=== PATIENT | male | born 1955 | race Caucasian/White ===

== ENCOUNTER 2020-05-17 15:08 | Inpatient (IN) | payer BC, OTHER ==
[2020-05-17 16:24] LABS: Protime INR 1.03
--- NOTE | 2020-05-17 16:24 | RAD REPORT ---
EXAM DESCRIPTION: CT - Angio Aorta For Dissection - 05/17/2020 4:13 pm CLINICAL HISTORY: Chest pain radiating to the back. HTN, BACK PAIN COMPARISON: No comparisons TECHNIQUE: CT angiography of the aorta was performed with MIPs. All CT scans are performed using dose optimization technique as appropriate and may include automated exposure control or mA/KV adjustment according to patient size. FINDINGS: A left aortic arch is present with normal branching pattern of the great vessels.No acute aortic finding is seen such as aneurysm, penetrating ulcer or dissection. The celiac axis, SMA, MARY and renal arteries are patent. No evidence of pulmonary embolism. The lungs are mildly emphysematous but clear. The liver demonstrates no focal mass or biliary dilatation.Multiple benign liver cysts.The spleen, pa ncreas, adrenal glands and kidneys are within normal limits for arterial phase imaging.15 mm left mai al cyst. No bowel obstruction, free fluid or abscess.Small fat containing umbilical hernia.No pathologic enlar ged lymphadenopathy identified.Normal appendix. Prominent lumbar degenerative changes at L3-4. IMPRESSION: No acute aortic finding is demonstrated.
--- NOTE | 2020-05-17 16:39 | RAD REPORT ---
EXAM DESCRIPTION: RAD - Chest Single View - 05/17/2020 4:31 pm CLINICAL HISTORY: HTN, LEXIE PAIN Chest pain. COMPARISON: Angio Aorta For Dissection dated 05/17/2020 FINDINGS: Portable technique limits examination quality. Mild subsegmental atelectasis in both lung bases. The lungs are otherwise clear. The heart is normal in size. No displaced fractures.
[2020-05-17 16:46] LABS: ALT/SGPT 35 U/L (12-78); AST/SGOT 32 U/L (15-37); Absolute Lymphocytes (CBC) 1.6 K/uL (0.7-4.9); Albumin 3.6 g/dL (3.4-5.0); Alkaline Phosphatase 65 U/L (45-117); BUN Blood Urea Nitrogen 16 mg/dL (7-18); Bicarbonate 27 mmol/L (21-32); Bilirubin Direct < 0.1 mg/dL (0-0.2); Bilirubin Total 0.3 mg/dL (0.2-1.0); Glucose Level 88 mg/dL (74-106); Lymphocytes % 22.5 % (15.3-44.8); MPV 9.2 fL (7.6-11.3); Magnesium 2.4 mg/dL (1.8-2.4); NT PRO-BNP 636 pg/mL (<125); Potassium 3.9 mmol/L (3.5-5.1); Protein, Total 7.3 g/dL (6.4-8.2); RBC Red Blood Cell Count 4.79 M/uL (4.33-5.43); Sodium Level 140 mmol/L (136-145)
[2020-05-17 16:48] LABS: Troponin (Emerg Dept Use Only) 4.56 ng/mL (0.0-0.045)
--- NOTE | 2020-05-17 17:04 | EDPHYS ---
Physician Documentation [facility] Name: Bob Early Age: 64 yrs Sex: Male : 1955 Arrival Date: 05/17/2020 Time: 15:16 Bed 6 Private MD: ED Physician Silviano Green HPI: 05/17 15:30 This 64 yrs old Male presents to ER via Ambulatory with complaints of Chest cp Pain, High Blood Pressure. 15:30 The patient presents with pain that is acute, with no known mechanism of injury. The cp symptoms are located in the left scapular area and right scapular area and mid scapular area. Onset: The symptoms/episode began/occurred last Thursday. Pain occurred suddenly that awoke patient from sleep. Pain resolved after 2-3 hours and has been intermittent since. Patient denies any pain today. The pain radiates to the lateral side of chest and left arm and right arm. Associated signs and symptoms: Pertinent negatives: abdominal pain, constipation, fever, headache, incontinence, numbness, tingling, weakness. Modifying factors: the patient symptoms are aggravated by nothing. Severity of symptoms: in the emergency department the symptoms have resolved, yesterday. 15:30 The patient has not experienced similar symptoms in the past. cp Historical: - Allergies: 15:34 No Known Allergies; ca1 - PMHx: 15:34 Hypertension; ca1 - Immunization history:: Adult Immunizations up to date. - Social history:: Smoking status: Patient denies any tobacco usage or history of. ROS: 15:33 Cardiovascular: Positive for radiating pain from mid back to lateral chest bilaterally. cp 15:33 Back: Positive for pain at rest, pain with movement, of the thoracic area. 15:33 Eyes: Negative for injury, pain, redness, and discharge. cp 15:33 Constitutional: Negative for body aches, chills, fever, poor PO intake. 15:33 ENT: Negative for ear pain, sore throat, difficulty swallowing, difficulty handling secretions. 15:33 Respiratory: Negative for cough, shortness of breath, wheezing. 15:33 Abdomen/GI: Negative for abdominal pain, nausea, vomiting, and diarrhea. 15:35 Skin: Negative for rash. cp 15:35 Neuro: Negative for altered mental status, dizziness, headache, numbness, syncope, weakness. 15:35 All other systems are negative. Exam: 15:33 ECG was reviewed by the Attending Physician. cp 15:35 Constitutional: The patient appears in no acute distress, alert, awake, comfortable, cp non-diaphoretic, non-toxic, well developed, well nourished. 15:35 Head/Face: Normocephalic, atraumatic. cp 15:35 Eyes: Periorbital structures: appear normal, Conjunctiva: normal, no exudate, no cp injection, Sclera: no appreciated abnormality, Lids and lashes: appear normal, bilaterally. 15:35 ENT: External ear(s): are unremarkable, Nose: is normal, Mouth: Lips: moist, Oral cp mucosa: pink and intact, moist, Posterior pharynx: is normal, airway is patent, no erythema, no exudate. 15:35 Neck: ROM/movement: is normal, is supple, without pain, no range of motions limitations, no nuchal rigidity. 15:35 Chest/axilla: Inspection: normal, Palpation: is normal, no crepitus, no tenderness. 15:35 Cardiovascular: Rate: normal, Rhythm: regular, Heart sounds: murmur, not appreciated, Edema: is not appreciated, JVD: is not appreciated. 15:35 Respiratory: the patient does not display signs of respiratory distress, Respirations: normal, no use of accessory muscles, no retractions, labored breathing, is not present, Breath sounds: are clear throughout, no decreased breath sounds. 15:35 Abdomen/GI: Inspection: abdomen appears normal, Palpation: abdomen is soft and non-tender, in all quadrants. 15:35 Back: pain, that is very mild, of the left scapular area and right scapular area and mid scapular area, ROM is normal. 15:35 Musculoskeletal/extremity: Exam is negative for bony tenderness, calf tenderness, decreased range of motion, injury. 15:35 Skin: no rash present. 15:35 Neuro: Orientation: to person, place \T\ time. Mentation: is normal, Cerebellar function: is grossly normal, Motor: moves all fours, strength is normal, Sensation: is normal. Vital Signs: 15:30 BP 144 / 82; Pulse 69; Resp 12 S; Temp 97.2(TE); Pulse Ox 98% on R/A; Weight 81.65 kg ca1 (R); Height 5 ft. 7 in. (170.18 cm) (R); Pain 0/10; 16:30 BP 126 / 82; Pulse 77; Resp 18; Pulse Ox 99% on R/A; ph 17:30 BP 156 / 94; Pulse 74; Resp 16; Pulse Ox 99% on R/A; ph 18:27 BP 162 / 96; Pulse 70; Resp 16; Pulse Ox 99% on R/A; ph 20:30 BP 161 / 100; Pulse 66; Resp 18; Pulse Ox 99% on R/A; wh 22:00 BP 158 / 97; Pulse 66; Resp 18; Pulse Ox 98% on R/A; wh 15:30 Body Mass Index 28.19 (81.65 kg, 170.18 cm) ca1 MDM: 15:27 Patient medically screened. cp 16:00 Differential diagnosis: Cholelithiasis chronic back pain, ruptured disc, vertebral cp fracture, acute MD, aortic aneurysm, aortic rupture. 17:00 Data reviewed: vital signs, nurses notes, lab test result(s), EKG, radiologic studies, cp CT scan, plain films. 17:00 Test interpretation: by ED physician or midlevel provider: ECG. Counseling: I had a cp detailed discussion with the patient and/or guardian regarding: the historical points, exam findings, and any diagnostic results supporting the discharge/admit diagnosis, lab results, radiology results, the need for further work-up and treatment in the hospital. 17:05 Physician consultation: Hilario Knight MD was contacted at 16:55, regarding admission, cp to the telemetry unit. consult, would like admission per Dr. Gualberto Brown DO requests patient to be given heparin bolus and placed on heparin drip, wants patient scheduled for cardiac cath in morning. 05/17 15:30 Order name: Basic Metabolic Panel cp 05/17 15:30 Order name: CBC with Diff cp 05/17 15:30 Order name: LFT's cp 05/17 15:30 Order name: Magnesium cp 05/17 15:30 Order name: NT PRO-BNP cp 05/17 15:30 Order name: PT-INR cp 05/17 15:30 Order name: Troponin (emerg Dept Use Only) cp 05/17 16:30 Order name: Protime (+INR); Complete Time: 16:45 EDMS 05/17 16:47 Order name: CBC with Automated Diff; Complete Time: 16:48 EDMS 05/17 16:48 Order name: Basic Metabolic Panel; Complete Time: 16:49 EDMS 05/17 16:48 Order name: Liver (Hepatic) Function; Complete Time: 16:49 EDMS 05/17 16:48 Order name: Troponin (Emerg Dept Use Only); Complete Time: 16:49 EDMS 05/17 16:49 Interpretation: Abnormal: TROPED 4.56. cp 05/17 16:48 Order name: NT PRO-BNP; Complete Time: 16:49 EDMS 05/17 16:48 Order name: Magnesium; Complete Time: 16:49 EDMS 05/17 15:30 Order name: XRAY Chest (1 view) 05/17 15:30 Order name: EKG; Complete Time: 21:19 cp 05/17 15:30 Order name: Cardiac monitoring; Complete Time: 17:07 05/17 15:30 Order name: EKG - Nurse/Tech; Complete Time: 17:07 05/17 15:30 Order name: IV Saline Lock; Complete Time: 17:07 cp 05/17 15:30 Order name: Labs collected and sent; Complete Time: 17:07 cp 05/17 15:30 Order name: O2 Per Protocol; Complete Time: 17:07 05/17 15:30 Order name: O2 Sat Monitoring; Complete Time: 18:04 cp 05/17 15:30 Order name: CT Aorta for Dissection 05/17 16:26 Order name: CT; Complete Time: 16:45 EDMS 05/17 16:46 Interpretation: Report reviewed. 05/17 16:42 Order name: RAD; Complete Time: 16:45 EDMS 05/17 22:05 Order name: CREATININE WHOLE BLOOD EDNE 05/17 15:59 Order name: Blood Pressure Recheck: bilateral upper extremity; Complete Time: 18:29 cp EC:33 Rate is 73 beats/min. Rhythm is regular. VA interval is normal. QRS interval is normal. cp QT interval is normal. Interpreted by me. Reviewed by me. Administered Medications: 16:00 Drug: NS 0.9% 1000 ml Route: IV; Rate: 1000 ml/hr; Site: right antecubital; ph 18:29 Follow up: Response: No adverse reaction; IV Status: Completed infusion ph 22:11 Follow up: Response: No adverse reaction; IV Status: Completed infusion wh 17:45 Drug: Heparin (MD-Bolus No thrombolytic) - HEParin 60 units/kg {Co-Signature: sv ph (Ivett Rodriguez RN).} {Note: 4900 units given.} Route: IVP; Site: right antecubital; 18:58 Follow up: Response: No adverse reaction ph 22:11 Follow up: Response: No adverse reaction wh 17:45 Drug: Heparin (MD Drip) 12 units/kg/hr - (HEParin 12042 units, D5W 500 ml) ph {Co-Signature: sv (Ivett Rodriguez RN).} {Note: administered at 1000 units per hour.} Route: IV; Rate: calculated rate; Site: right antecubital; 18:58 Follow up: Response: No adverse reaction; IV Status: Infusion continued upon admission ph 22:11 Follow up: Response: No adverse reaction; IV Status: Infusion continued upon admission wh 17:56 Drug: Aspirin Chewable Tablet 324 mg Route: PO; ph 18:55 Follow up: Response: No adverse reaction ph 22:11 Follow up: Response: No adverse reaction Disposition: 05/18 15:56 Co-signature as Attending Physician, Silviano Green MD I agree with the assessment and kdr plan of care. Disposition: 05/17/20 17:03 Hospitalization ordered by Gualberto Brown for Inpatient Admission. Preliminary diagnosis is Non-ST elevation (NSTEMI) myocardial infarction. - Bed requested for Telemetry/MedSurg (Inpatient). - Status is Inpatient Admission. mw2 - Condition is Stable. - Problem is new. - Symptoms have improved. Signatures: Dispatcher [employer] EDMS Silviano Green MD MD [facility] Gloria Ojeda RN RN ph Jayden Capellan PA PA cp Garcia, Cindy, RN RN Molly Thompson mw2 Zita Woodall RN RN [facility] Mary Pat Ivett chavarria Corrections: (The following items were deleted from the chart) 05/17 20:48 17:03 Hospitalization Ordered by Gualberto Brown DO for Inpatient Admission. Preliminary cg diagnosis is Non-ST elevation (NSTEMI) myocardial infarction. Bed requested for Telemetry/MedSurg (Inpatient). Status is Inpatient Admission. Condition is Stable. Problem is new. Symptoms have improved. cp 21:43 20:48 05/17/2020 17:03 Hospitalization Ordered by Gualberto Brown DO for Inpatient cg Admission. Preliminary diagnosis is Non-ST elevation (NSTEMI) myocardial infarction. Bed requested for [facility] ER HOLD. Status is Inpatient Admission. Condition is Stable. Problem is new. Symptoms have improved. cg 22:45 21:43 05/17/2020 17:03 Hospitalization Ordered by Gualberto Brown DO for Inpatient mw2 Admission. Preliminary diagnosis is Non-ST elevation (NSTEMI) myocardial infarction. Bed requested for Telemetry/MedSurg (Inpatient). Status is Inpatient Admission. Condition is Stable. Problem is new. Symptoms have improved. cg
--- NOTE | 2020-05-17 17:04 | ER ---
Nurse's Notes [facility] Name: Bob Early Age: 64 yrs Sex: Male : 1955 Arrival Date: 05/17/2020 Time: 15:16 Bed 6 Private MD: Diagnosis: Non-ST elevation (NSTEMI) myocardial infarction Presentation: 05/17 15:30 Chief complaint: Patient states: Pain started Thursday. More on the back between the ca1 scapula, radiates to the sides on both sides and more on the R. A little arm discomfort with the pain. Pain is intermittent and described as heavy. Denies SOB, lightheaded, N/V/dizziness. Coronavirus screen: Proceed with normal triage. Patient denies a cough. Patient denies shortness of breath or difficulty breathing. Patient denies measured and/or subjective temperature greater than 100.4F prior to today's visit. Patient denies travel on a cruise ship or to a country the [facility] currently lists as an affected area. Patient denies contact with known and/or suspected case of COVID-19. Ebola Screen: Patient negative for fever greater than or equal to 101.5 degrees Fahrenheit, and additional compatible Ebola Virus Disease symptoms Patient denies exposure to infectious person. Patient denies travel to an Ebola-affected area in the 21 days before illness onset. No symptoms or risks identified at this time. Initial Sepsis Screen: Does the patient meet any 2 criteria? No. Patient's initial sepsis screen is negative. Does the patient have a suspected source of infection? No. Patient's initial sepsis screen is negative. Risk Assessment: Do you want to hurt yourself or someone else? Patient reports no desire to harm self or others. Onset of symptoms was May 17, 2020. 15:30 Method Of Arrival: Ambulatory ca1 15:30 Acuity: BYRON 3 ca1 Historical: - Allergies: 15:34 No Known Allergies; ca1 - PMHx: 15:34 Hypertension; ca1 - Immunization history:: Adult Immunizations up to date. - Social history:: Smoking status: Patient denies any tobacco usage or history of. Screenin:01 Abuse screen: Denies threats or abuse. Denies injuries from another. Nutritional ph screening: No deficits noted. Tuberculosis screening: No symptoms or risk factors identified. Fall Risk None identified. Assessment: 16:00 General: Appears in no apparent distress. comfortable, well groomed, Behavior is calm, ph cooperative, appropriate for age, Denies fever, feeling ill. Pain: Complains of pain in thoracic area Pain radiates to left scapular area and right scapular area and bilateral arms. 16:00 Pain: Pain began 5 days ago. Neuro: Level of Consciousness is awake, alert, obeys ph commands, Oriented to person, place, time, situation. Cardiovascular: Reports chest pain, Denies nausea, shortness of breath, Capillary refill < 3 seconds in bilateral fingers Patient's skin is warm and dry. Chest pain quality is heaviness, is located in posterior chest wall radiates to bilateral scapula began 5 days ago episodes are intermittent. 16:57 Respiratory: Airway is patent Respiratory effort is even, unlabored, Respiratory ph pattern is regular, symmetrical. GI: Patient currently denies abdominal pain, diarrhea, nausea, vomiting. Derm: Skin is intact, is healthy with good turgor, Skin is pink, warm \T\ dry. Musculoskeletal: Circulation, motion, and sensation intact. Range of motion: intact in all extremities. 18:25 Reassessment: Patient appears in no apparent distress at this time. Patient and/or ph family updated on plan of care and expected duration. Pain level reassessed. Patient is alert, oriented x 3, equal unlabored respirations, skin warm/dry/pink. Pt resting comfortably, awaiting room assignment, VSS Patient denies pain at this time. 19:15 General: Appears in no apparent distress. comfortable, Behavior is calm, cooperative, wh appropriate for age. Pain: Denies pain. Neuro: Level of Consciousness is awake, alert, obeys commands, Oriented to person, place, time, situation, Appropriate for age. Cardiovascular: Heart tones S1 S2. Respiratory: Airway is patent Respiratory effort is even, unlabored, Respiratory pattern is regular, symmetrical, Breath sounds are clear bilaterally. GI: Abdomen is flat, non-distended. : No signs and/or symptoms were reported regarding the genitourinary system. EENT: No signs and/or symptoms were reported regarding the EENT system. Derm: Skin is intact, is healthy with good turgor, Skin is pink, warm \T\ dry. normal. Musculoskeletal: Circulation, motion, and sensation intact. 20:30 Reassessment: Patient appears in no apparent distress at this time. No changes from previously documented assessment. Patient and/or family updated on plan of care and expected duration. Pain level reassessed. Patient is alert, oriented x 3, equal unlabored respirations, skin warm/dry/pink. 22:00 Reassessment: Patient appears in no apparent distress at this time. No changes from previously documented assessment. Patient and/or family updated on plan of care and expected duration. Pain level reassessed. Patient is alert, oriented x 3, equal unlabored respirations, skin warm/dry/pink. Vital Signs: 15:30 BP 144 / 82; Pulse 69; Resp 12 S; Temp 97.2(TE); Pulse Ox 98% on R/A; Weight 81.65 kg ca1 (R); Height 5 ft. 7 in. (170.18 cm) (R); Pain 0/10; 16:30 BP 126 / 82; Pulse 77; Resp 18; Pulse Ox 99% on R/A; ph 17:30 BP 156 / 94; Pulse 74; Resp 16; Pulse Ox 99% on R/A; ph 18:27 BP 162 / 96; Pulse 70; Resp 16; Pulse Ox 99% on R/A; ph 20:30 BP 161 / 100; Pulse 66; Resp 18; Pulse Ox 99% on R/A; wh 22:00 BP 158 / 97; Pulse 66; Resp 18; Pulse Ox 98% on R/A; wh 15:30 Body Mass Index 28.19 (81.65 kg, 170.18 cm) ca1 ED Course: 15:16 Patient arrived in ED. fj1 15:18 Jayden Capellan PA is PHCP. cp 15:18 Silviano Green MD is Attending Physician. cp 15:31 Gloria Ojeda, LAURYN is Primary Nurse. ph 15:33 Triage completed. ca1 15:34 Arm band placed on. EKG completed in triage. Results shown to . ca1 15:40 Initial lab(s) drawn, by ED staff, sent to lab. Inserted saline lock: 20 gauge in right ph antecubital area, using aseptic technique. Blood collected. 16:17 Patient moved back from CT. sv 16:54 Director Of Compensation called and connected Dr. Knight with Jayden AMOS for patient consultation. eb 17:01 Patient has correct armband on for positive identification. Placed in gown. Bed in low ph position. Call light in reach. Side rails up X2. monitoring engineer on. Pulse ox on. NIBP on. Door closed. Noise minimized. Warm blanket given. 17:02 No provider procedures requiring assistance completed. Patient admitted, IV remains in ph place. Patient maintains SpO2 saturation greater than 95% on room air. 17:03 Gualberto Brown DO is Hospitalizing Provider. cp Administered Medications: 16:00 Drug: NS 0.9% 1000 ml Route: IV; Rate: 1000 ml/hr; Site: right antecubital; ph 18:29 Follow up: Response: No adverse reaction; IV Status: Completed infusion ph 22:11 Follow up: Response: No adverse reaction; IV Status: Completed infusion 17:45 Drug: Heparin (OK-Bolus No thrombolytic) - HEParin 60 units/kg {Co-Signature: sv ph (Ivett Rodriguez RN).} {Note: 4900 units given.} Route: IVP; Site: right antecubital; 18:58 Follow up: Response: No adverse reaction ph 22:11 Follow up: Response: No adverse reaction 17:45 Drug: Heparin (OK Drip) 12 units/kg/hr - (HEParin 81111 units, D5W 500 ml) ph {Co-Signature: sv (Ivett Rodriguez RN).} {Note: administered at 1000 units per hour.} Route: IV; Rate: calculated rate; Site: right antecubital; 18:58 Follow up: Response: No adverse reaction; IV Status: Infusion continued upon admission ph 22:11 Follow up: Response: No adverse reaction; IV Status: Infusion continued upon admission 17:56 Drug: Aspirin Chewable Tablet 324 mg Route: PO; ph 18:55 Follow up: Response: No adverse reaction ph 22:11 Follow up: Response: No adverse reaction Outcome: 17:03 Decision to Hospitalize by Provider. cp 22:10 Admitted to Med/surg accompanied by nurse, via wheelchair, room 217, with chart, Report called to Fara COMBS 22:10 Condition: stable 22:10 Instructed on the need for admit. 22:45 Patient left the ED. mw2 Signatures: Ivett Rodriguez RN RN sv Hall, Patricia, RN RN ph Jayden Capellan PA PA cp [place], Winsy [facility], Molly mw2 Angelica Miller Cheryl, RN RN ca1 Alexis Isbell fj1 Ivett Rodriguez RN sv Corrections: (The following items were deleted from the chart) 17:01 16:00 Cardiovascular: Reports chest pain, shortness of breath, Capillary refill < 3 ph seconds in bilateral fingers Patient's skin is warm and dry. ph 18:57 07:45 Heparin (OK-Bolus No thrombolytic) - HEParin 60 units/kg IVP in right antecubital ph ph
[2020-05-17] MEDS ORDERED: HEPARIN/D5W 25,000 UNIT/500 ML BAG IV ONE (17:27)
[2020-05-17] MEDS ORDERED: HEPARIN 5000 UNIT/ML 1 ML VIAL ONE (17:27)
[2020-05-17] MEDS ORDERED: ASPIRIN 81 MG CHEWABLE TABLET ONE (17:27)
--- NOTE | 2020-05-17 18:34 | P.HP ---
Certification for Inpatient Patient admitted to: Inpatient With expected LOS: >2 Midnights Patient will require the following post-hospital care: None Practitioner: I am a practitioner with admitting privileges, knowledge of patient current condition, hospital course, and medical plan of care. Services: Services provided to patient in accordance with Admission requirements found in Title 42 Section 412.3 of the Code of Federal Regulations Patient History Date of Service: 05/17/20 Primary Care Provider: Dr. long Reason for admission: NSTEMI History of Present Illness: 64-year-old male with medical history of hypertension not currently taking any medication presented the emergency department with a recent history of back pain has been intermittent since Thursday. Patient reports his blood pressure has also been running high. Patient family was concerned due to the back pain and had blood pressure of the emergency department for further evaluation. Patient was worked up in the emergency department had a cardiac workup and also a CT angio to rule out dissection. Patient was found to have an elevated troponin at 4.56. Cardiology was consulted while the patient was in the emergency department and recommended heart catheterization for tomorrow morning. Patient was started on a heparin drip. Patient is pain free at this time in no distress. Patient be admitted for further evaluation and management. When I saw the patient in the emergency department he was calm, pleasant, alert oriented x4. Denying any pain at this time. Blood pressure was 150/90 when I saw him. Patient be admitted for further evaluation and management of this condition. Home medications list reviewed: Yes - Past Medical/Surgical History Has patient received pneumonia vaccine in the past: No -: Hypertension -: History of polio -: Right leg surgery Psychosocial/ Personal History: Patient lives at home with is - Family History Father -: Heart disease, Hypertension Notes: from a heart attack at age 60 Mother -: Hypertension, Diabetes - Social History Smoking Status: Never smoker Alcohol use: Yes CD- Drugs: No Caffeine use: Yes Review of Systems General: Unremarkable Eyes: Unremarkable ENT: Unremarkable Respiratory: Unremarkable Cardiovascular: Unremarkable Gastrointestinal: Unremarkable Genitourinary: Unremarkable Musculoskeletal: Back Pain (Intermittent back pain) Integumentary: Unremarkable Neurological: Unremarkable Physical Examination - Physical Exam General: Alert, In no apparent distress, Oriented x3 HEENT: Atraumatic, Normocephalic Neck: Supple Respiratory: Clear to auscultation bilaterally, Normal air movement Cardiovascular: No edema Capillary refill: <2 Seconds Gastrointestinal: Normal bowel sounds Musculoskeletal: No contractures, No erythema, No tenderness Integumentary: No erythema, No warmth, No cyanosis Neurological: Normal speech, Normal strength at 5/5 x4 extr, Normal tone, Sensation intact - Studies Laboratory Data (last 24 hrs) 05/17/20 15:41: PT 12.1, INR 1.03 05/17/20 15:41: WBC 7.0, Hgb 14.6, Hct 44.0, Plt Count 240 05/17/20 15:41: Sodium 140, Potassium 3.9, BUN 16, Creatinine 1.05, Glucose 88, Magnesium 2.4, Total Bilirubin 0.3, AST 32, ALT 35, Alkaline Phosphatase 65 Assessment and Plan - Plan Assessment NSTEMI: Hypertension: Plan NSTEMI: Patient to be admitted for further evaluation management. Cardiology has been consulted in the emergency department and referred patient be on a heparin drip. Heparin drip initiated in the emergency department. Patient is chest pain-free at this time. Will continue to monitor. Patient remained on telemetry throughout this hospitalization, will trend troponins. Initiate beta- vel therapy, aspirin. Anticipate heart catheterization tomorrow morning with cardiology. Await further input from cardiology. Hypertension: Patient not currently taking any medications at home, have initiate beta-vel therapy. Will continue to monitor patient closely Discharge Plan: Home Plan to discharge in: 48 Hours - Advance Directives Does patient have a Living Will: No Does patient have a Durable POA for Healthcare: No - Code Status/Comfort Care Code Status Assessed: Yes (Patient is full code) Critical Care: No Time Spent Managing Pts Care (In Minutes): 55
[2020-05-17] MEDS ORDERED: ACETAMINOPHEN 500 MG TAB PO PRN (21:37)
[2020-05-17] MEDS ORDERED: HYDRALAZINE HCL 20 MG/ML VIAL IV PRN (21:37)
[2020-05-17] MEDS ORDERED: ONDANSETRON 4 MG/2 ML VIAL IV PRN (21:37)
[2020-05-17] MEDS ORDERED: HEPARIN/D5W 25,000 UNIT/500 ML BAG IV SCH (21:37)
[2020-05-17] MEDS ORDERED: HEPARIN 10,000 UNIT/10 ML VIAL IV PRN (21:50)
[2020-05-17] MEDS ORDERED: HEPARIN 10,000 UNIT/10 ML VIAL IV ONE (22:00)
[2020-05-17] MEDS: METOPROLOL TAR 25 MG TAB PO SCH (22:00)
[2020-05-17 23:18] LABS: CKMB Creatine Kinase MB 4.4 ng/mL (0.3-3.6)
[2020-05-17 23:27] LABS: Troponin I 5.15 ng/mL (0.0-0.045)
[2020-05-17] MEDS: ATORVASTATIN 40 MG TAB PO SCH (23:40)
[2020-05-18 00:10] VITALS: BMI 28.6
[2020-05-18] MEDS: METOPROLOL TAR 25 MG TAB PO SCH ×2 (05:36→17:26)
[2020-05-18 06:20] LABS: Absolute Lymphocytes (CBC) 1.6 K/uL (0.7-4.9); Basophils % 1.1 % (0-1.3); Hematocrit 41.5 % (39.6-49.0); Lymphocytes % 23.2 % (15.3-44.8); MPV 8.7 fL (7.6-11.3); RBC Red Blood Cell Count 4.62 M/uL (4.33-5.43)
[2020-05-18] MEDS ORDERED: HEPARIN 5000 UNIT/ML 1 ML VIAL ONE ×2 (06:39→13:01)
[2020-05-18 06:45] LABS: Magnesium 2.6 mg/dL (1.8-2.4); Potassium 4.4 mmol/L (3.5-5.1)
[2020-05-18 06:52] LABS: CKMB Creatine Kinase MB 4.5 ng/mL (0.3-3.6)
[2020-05-18 06:56] LABS: Troponin I 4.57 ng/mL (0.0-0.045)
[2020-05-18 06:59] LABS: Thyroid Stimulating Hormone 5.12 uIU/mL (0.360-3.740)
[2020-05-18] MEDS: ASPIRIN EC 81 MG TAB PO SCH (10:07)
[2020-05-18] MEDS ORDERED: NA CHLORIDE 0.9% 500 ML ONE (10:24)
[2020-05-18] MEDS ORDERED: MIDAZOLAM HCL 2 MG/2 ML INJ ONE (13:01)
[2020-05-18] MEDS ORDERED: HEPA 1000U/500MLS 2,000 UNIT/1,000 ML BAG IV ONE (13:01)
[2020-05-18] MEDS ORDERED: ATROPINE SULF 1 MG/10 ML SYR IV ONE (13:02)
[2020-05-18] MEDS ORDERED: NICARDIPINE HCL 25 MG/10 ML IV ONE (13:02)
[2020-05-18] MEDS ORDERED: FENTANYL CITR 100 MCG/2 ML ONE (13:02)
[2020-05-18] MEDS ORDERED: HEPARIN 10,000 UNIT/10 ML VIAL IV ONE (13:02)
[2020-05-18] MEDS ORDERED: NITROGLYCERIN 100 MCG/ML SYR (for cath lab use only) IV ONE (13:02)
[2020-05-18] MEDS ORDERED: TICAGRELOR 90 MG TABLET PO ONE (13:39)
[2020-05-18] MEDS ORDERED: ZOLPIDEM TARTRATE 5 MG TABLET PO PRN (14:55)
[2020-05-18] MEDS ORDERED: NA CHLORIDE 0.9% 1,000 ML IV SCH (15:00)
[2020-05-18] MEDS ORDERED: HEPARIN 5000 UNIT/ML 1 ML VIAL IV PRN (15:00)
--- NOTE | 2020-05-18 17:13 | P.PN ---
Subjective Date of Service: 05/18/20 Primary Care Provider: Dr. long Chief Complaint: NSTEMI Subjective: Improving (Chest pain) Physical Examination - Vital Signs Temperature: 97.9 F Blood Pressure: 131/93 Pulse: 81 Respirations: 20 Pulse Ox (%): 97 - Physical Exam General: Alert, In no apparent distress, Oriented x3, Cooperative HEENT: Atraumatic Neck: Supple Respiratory: Clear to auscultation bilaterally, Normal air movement Cardiovascular: Normal pulses, Regular rate/rhythm Gastrointestinal: Normal bowel sounds, No masses, No rebound, No guarding Neurological: Normal speech, Normal strength at 5/5 x4 extr, Normal tone, Normal affect - Studies Laboratory Data (last 24 hrs) 05/17/20 15:30: PT Cancelled, INR Cancelled 05/17/20 15:30: WBC Cancelled, Hgb Cancelled, Hct Cancelled, Plt Count Cancelled 05/17/20 15:30: Sodium Cancelled, Potassium Cancelled, BUN Cancelled, Creatinine Cancelled, Glucose Cancelled, Magnesium Cancelled, Total Bilirubin Cancelled, AST Cancelled, ALT Cancelled, Alkaline Phosphatase Cancelled Medications List Reviewed: Yes Assessment & Plan Discharge Plan: Home Plan to discharge in: 24 Hours Physician Review Additional Text: Assessment NSTEMI status post heart catheterization with stent Hypertension Hyperlipidemia Plan NSTEMI status post heart catheterization with stent: Spoke with cardiology. Patient had heart catheterization requiring stenting. Continue aspirin, Brilinta, statin, and blood pressure medication. Will monitor Overnite. Anticipate discharge tomorrow if stable. Hypertension: Continue medication Hyperlipidemia: Continue medication Time Spent Managing Pts Care (In Minutes): 55
[2020-05-18] MEDS: TICAGRELOR 90 MG TABLET PO SCH (21:46)
[2020-05-18] MEDS: ATORVASTATIN 40 MG TAB PO SCH (21:46)
[2020-05-19] MEDS: METOPROLOL TAR 25 MG TAB PO SCH ×2 (05:18→17:02)
[2020-05-19 06:06] LABS: Magnesium 2.6 mg/dL (1.8-2.4); Potassium 4.8 mmol/L (3.5-5.1)
[2020-05-19 06:09] LABS: Absolute Lymphocytes (CBC) 1.1 K/uL (0.7-4.9); Basophils % 0.8 % (0-1.3); Hematocrit 40.9 % (39.6-49.0); Lymphocytes % 15.6 % (15.3-44.8); MPV 8.7 fL (7.6-11.3); RBC Red Blood Cell Count 4.57 M/uL (4.33-5.43)
[2020-05-19] MEDS: ASPIRIN EC 81 MG TAB PO SCH (09:53)
[2020-05-19] MEDS: TICAGRELOR 90 MG TABLET PO SCH (09:53)
--- NOTE | 2020-05-19 10:42 | P.DS ---
Admission Date: 05/17/20 Discharge Date: 05/19/20 Primary Care Provider: Dr. Reyes Disposition: ROUTINE DISCHARGE Discharge Condition: GOOD Reason for Admission: NSTEMI Consultations: Cardiology-Dr. Knight Procedures: CT Scan: FINDINGS: A left aortic arch is present with normal branching pattern of the great vessels.No acute aortic finding is seen such as aneurysm, penetrating ulcer or dissection. The celiac axis, SMA, MARY and renal arteries are patent. No evidence of pulmonary embolism. The lungs are mildly emphysematous but clear. The liver demonstrates no focal mass or biliary dilatation.Multiple benign liver cysts.The spleen, pancreas, adrenal glands and kidneys are within normal limits for arterial phase imaging.15 mm left renal cyst. No bowel obstruction, free fluid or abscess.Small fat containing umbilical hernia.No pathologic enlarged lymphadenopathy identified.Normal appendix. Prominent lumbar degenerative changes at L3-4. IMPRESSION: No acute aortic finding is demonstrated. Heart Cath: Severe disease noted. Stent placed to the LAD. Medical Problem List: NSTEMI status post heart catheterization showing severe disease to the LAD. Stent placed Hypertension Hyperlipidemia Brief History of Present Illness: 64 yo CM presented to the ER with back pain and elevated BP. He was seen in the ER and found to have NSTEMI. He was admitted for further evaluation. Hospital Course: Patient presented with elevated blood pressure and back pain Patient found to have NSTEMI. Patient was seen and evaluated by Cardiology. Heart catheterization was performed. Patient had severe disease requiring stent. The patient tolerated the procedure well. Case discussed at length with cardiology. At discharge patient without significant chest pain, shortness of breath. At discharge patient will continue with aspirin 81 mg daily, Brilinta 90 mg 1 pill twice daily, Lipitor 40 mg daily, and metoprolol 25 mg 1 pill twice daily. Recommend follow up with cardiology in 1-2 weeks to follow up this hospitalization. Education on CAD, NSTEMI will be provided. Patient with underlying hypertension. As mentioned above patient will continue with metoprolol 25 mg 1 pill twice daily. Recommend to maintain blood pressure less than 140/90. Further adjustment can be done by his PCP or cardiology. Patient with hyperlipidemia. At discharge patient will continue with Lipitor 40 mg daily. Recommend to recheck fasting lipid panel in 1 month to monitor his progress. Vital Signs/Physical Exam: Temp Pulse Resp BP Pulse Ox 98.4 F 62 20 119/73 96 05/19/20 04:00 07/11/20 05:18 05/19/20 04:00 05/19/20 05:18 05/19/20 04:00 General: Alert, In no apparent distress, Oriented x3, Cooperative HEENT: Atraumatic Neck: Supple Respiratory: Clear to auscultation bilaterally, Normal air movement Cardiovascular: Normal pulses, Regular rate/rhythm Gastrointestinal: Normal bowel sounds, Soft and benign, Non-distended, No tenderness, No masses, No rebound, No guarding Musculoskeletal: No erythema, No tenderness, No warmth Neurological: Normal speech, Normal strength at 5/5 x4 extr, Normal tone, Normal affect Laboratory Data at Discharge: WBC 7.3 K/uL (4.3-10.9) 05/19/20 05:23 Hgb 14.3 g/dL (13.6-17.9) 05/19/20 05:23 Hct 40.9 % (39.6-49.0) 05/19/20 05:23 Plt Count 192 K/uL (152-406) 05/19/20 05:23 PT 12.1 SECONDS (9.5-12.5) 05/17/20 15:41 INR 1.03 05/17/20 15:41 APTT 41.8 SECONDS (24.3-36.9) H 05/18/20 10:40 Sodium 142 mmol/L (136-145) 05/19/20 05:23 Potassium 4.8 mmol/L (3.5-5.1) 05/19/20 05:23 BUN 13 mg/dL (7-18) 05/19/20 05:23 Creatinine 1.11 mg/dL (0.55-1.3) 05/19/20 05:23 Glucose 97 mg/dL (74-106) 05/19/20 05:23 Magnesium 2.6 mg/dL (1.8-2.4) H 05/19/20 05:23 Total Bilirubin 0.3 mg/dL (0.2-1.0) 05/17/20 15:41 AST 32 U/L (15-37) 05/17/20 15:41 ALT 35 U/L (12-78) 05/17/20 15:41 Alkaline Phosphatase 65 U/L (45-117) 07/09/20 15:41 Troponin I 4.57 ng/mL (0.0-0.045) H* 05/18/20 05:18 Triglycerides 99 mg/dL (<150) 05/18/20 05:18 Cholesterol 159 mg/dL (<200) 05/18/20 05:18 HDL Cholesterol 36 mg/dL (40-60) L 05/18/20 05:18 Cholesterol/HDL Ratio 4.42 05/18/20 05:18 Home Medications: Aspirin [Aspirin EC 81 MG] 81 mg PO DAILY #90 tablet. 05/19/20 Atorvastatin Calcium [Lipitor] 40 mg PO BEDTIME #30 tab 05/19/20 Metoprolol Tartrate [Lopressor*] 25 mg PO BID 6AM 6PM #60 tab 05/19/20 Ticagrelor [Brilinta*] 90 mg PO Q12HR #60 tablet 05/19/20 New Medications: Aspirin [Aspirin EC 81 MG] 81 mg PO DAILY #90 tablet. Ticagrelor [Brilinta*] 90 mg PO Q12HR #60 tablet Atorvastatin Calcium [Lipitor] 40 mg PO BEDTIME #30 tab Metoprolol Tartrate [Lopressor*] 25 mg PO BID 6AM 6PM #60 tab Patient Discharge Instructions: 1. Recommend follow up with PCP in 1 week to follow up this hospitalization. 2. Patient presented with elevated blood pressure and back pain Patient found to have NSTEMI. Patient was seen and evaluated by Cardiology. Heart catheterization was performed. Patient had severe disease requiring stent. The patient tolerated the procedure well. Case discussed at length with cardiology. At discharge patient without significant chest pain, shortness of breath. At discharge patient will continue with aspirin 81 mg daily, Brilinta 90 mg 1 pill twice daily, Lipitor 40 mg daily, and metoprolol 25 mg 1 pill twice daily. Recommend follow up with cardiology in 1- 2 weeks to follow up this hospitalization. Education on CAD, NSTEMI will be provided. 3. Patient with underlying hypertension. As mentioned above patient will continue with metoprolol 25 mg 1 pill twice daily. Recommend to maintain blood pressure less than 140/90. Further adjustment can be done by his PCP or cardiology. 4. Patient with hyperlipidemia. At discharge patient will continue with Lipitor 40 mg daily. Recommend to recheck fasting lipid panel in 1 month to monitor his progress. Diet: AHA Activity: Ad malini Time spent managing pt's care (in minutes): 55
[2020-05-19 10:54] VITALS: O2SAT 95
[2020-05-19 15:20] VITALS: TEMP 97.5
[2020-05-19 17:02] VITALS: BP 129/63
--- NOTE | 2020-05-19 18:56 | PN ---
Date of Progress Note: 05/19/2020 Subjective: Patient is seen bedside, doing well. No further chest pain. with no signifi cant complications post coronary angiogram. There is no nausea, vomiting, diarrhea. No abdominal pa in. . All other systems reviewed and are negative. Physical Examination: Vital Signs: Today show a temperature of 97.5, pulse 71, breathing at 18, blood pressure 127/86, sat urating 96% on room air. General: Pleasant, middle-aged male, in no apparent distress. Head and Neck: Pupils are equal, reactive to light. Intact eye movements. No JVD. No cervical lym phadenopathy. Neck is supple. Thyroid is not enlarged. Lungs: Clear to auscultation bilaterally. No rhonchi, rales, or crackles. No accessory muscle use. Heart: Regular rate and rhythm. No extra sounds. Abdomen: Soft, nontender. Bowel sounds positive. No organomegaly. No masses or hernia. No rigidi ty or rebound. Extremities. No edema, clubbing, or cyanosis. Intact pulses. Skin: No rashes. Neurologic: Alert, awake, oriented x3. No acute focal deficits appreciated. Investigations: Labs are reviewed. Assessment And Plan: 1.Use-KU-tzjoipqhw myocardial infarction due to mid left anterior descending stenosis, status post P CI successfully with no further symptoms. Recommend Brilinta 90 mg q.12 hours, aspirin 81 mg daily, and Lipitor 80 mg daily. From my standpoint, patient can be discharged. He is counseled not to lift anything heavier than a gallon of milk on the right arm for a week. Follow up with me in the office in 4 weeks and we will obtain echocardiogram at that time and then manage the cardiac risk factors a ggressively. 2.Hypertension. Blood pressure is controlled. Cardiology will sign off on the case and please have patient follow up in 4 weeks in the office. /DEYANIRA Voice ID: [id number] Report ID: [id number]
--- NOTE | 2020-05-19 20:59 | CON ---
Reason For Consultation: Non-ST elevation myocardial infarction and chest pain. History Of Present Illness: 64-year-old male with history of hypertension and polio sent to the [facility] room with crushing chest pain radiates to the back and the pain was severe. He was found to timmons ve elevated troponin at 4.5 in the emergency room, ruled in for a non-ST elevation myocardial infarct ion and was consulted immediately in the emergency room. EKG was reviewed and there was no ST elevat ion. The patient was started on heparin drip and aspirin. He was completely pain free at the time o f admission and no other complaints. Past Medical History: Hypertension, polio. Past Surgical History: Right leg surgery. Social History: He does not smoke or drink. Does not use any drugs. Family History: Father with coronary artery disease and hypertension and from [facility] at the age of 60. Review of Systems: All systems reviewed were negative except for mentioned in the HPI. Physical Examination: Vital Signs: Revealed a temperature of 97.9, pulse 70, breathing at 18, blood pressure is 140/88, sa turating 95% on room air. General: Pleasant, middle-aged male, in no apparent distress. Head and Neck: Pupils are equal, react to light. Intact eye movements. No JVD. No cervical lympha denopathy. Neck is supple. Thyroid is not enlarged. Lungs: Clear to auscultation bilaterally causing crackles. No accessory muscle use. Heart: Regular rate and rhythm. No extra sounds. Abdomen: Soft, nontender. Bowel sounds positive. No organomegaly. No masses or hernia. No rigidi ty or rebound. Extremities: There is no edema, clubbing, cyanosis. Intact pulses. Skin: No rashes. Neurologic: Alert, awake, oriented x3. No acute process appreciated. Investigations: Troponin peaked at 5.15, BUN is 14, creatinine 0.97. EKG without acute ST elevation . Assessment And Plan: 1.Non-ST elevation myocardial infarction. Patient was kept n.p.o. for coronary angiogram today and possible percutaneous coronary intervention. Risks, benefits, and alternatives were explained to the patient. He agreed to the procedure and signed informed consent. Continue aspirin daily, high-dose statin and further management will be dictated after the coronary angiogram. 2.Hypertension and resume home medication, may be include beta-vel if the patient is not alone a nd watch the blood pressure. Adjust further if needed. Thank you for the courtesy of this consultation. /DEYANIRA Voice ID: [id number] Report ID: [id number]
--- NOTE | 2020-05-19 23:14 | OP ---
Date of Procedure: 05/18/2020 Surgeon: NAHUM LAZO Procedures Performed: 1.Selective coronary angiogram. 2.Percutaneous coronary intervention of severe mid left anterior descending, 90% stenosis, which is the culprit for the acute myocardial infarction using 3.5 x 20 mm Synergy drug-eluting stent overlapp ed by 3.5 x 12 mm Synergy drug-eluting stent proximally. The lesion length is 22 mm, severity 99%, a nd RENETTA-3 flow before and after percutaneous coronary intervention. Post-PCI, residual stenosis 0% a nd RENETTA-3 flow. Access: Right radial artery 6-Dutch closed with TR band. Indication: Non-ST elevation myocardial infarction. Complications: None. Bleeding: Less than 5 mL. Total Sedation Time: 45 minutes. Description Of Procedure: After risks, benefits, and alternatives were explained to the patient, he agreed to the procedure and signed informed consent and we brought the patient to the cardiac cathete rization laboratory, prepped and draped in usual sterile fashion. We used fentanyl and Versed in inc remental doses to achieve adequate moderate sedation. Then, we accessed the right radial artery usin g the pediatric micropuncture kit and placed a 6-Dutch slender sheath and radial cocktail was given. Then, we took the 5-Dutch tiger catheter over a J-wire into the aortic root and engaged the left m ain coronary artery and took standard views in the right coronary artery. The patient was found to h ave critical mid LAD stenosis and decided for intervention. Intervention Details: We gave systemic heparin to assure an ACT level above 250 throughout the proce dure and we took a 6-Dutch EBU 3.5 guide into the aortic root over a J-wire, engaged the left main c oronary artery and we took a short run-through wire into the left main coronary artery and then into the LAD across the stenosis and the lesion was prepped using a 3.0 x 50 mm balloon and then we took 3 .5 x 20 mm Synergy drug-eluting stent deployed successfully. However, there was a significant diseas e proximal to that, so he had an edge dissection proximally. Then, we took another stent 3.5 x 12 mm overlapped with the first one and see the dissection very well and had 0% residual stenosis and RENETTA -3 flow with excellent results. Then, we took the wire out and took final picture that showed no com plications. We took the catheters and wires out and then the sheath out. We closed the access with a TR band with good hemostasis. Postoperative Diagnosis: Severe mid left anterior descending stenosis, which is the culprit for the acute djq-GH-vgtvownor myocardial infarction, status post percutaneous coronary intervention as outli sabiha above. Recommendations: 1.Patient was given Brilinta 180 mg on the cath table, continue 90 mg q.12 hours; aspirin 81 mg christophe y; and Lipitor 80 mg daily. 2.Follow up in 4 weeks postdischarge. We will obtain echocardiogram. /DEYANIRA Voice ID: [id number] Report ID: [id number]
--- NOTE | 2020-05-19 23:35 | OP ---
Date of Procedure: 05/18/2020 Surgeon: NAHUM LAZO Addendum: Findings Of The Coronary Angiogram: 1.Left main artery, large with no significant stenosis. 2.Left circumflex, large, dominant circulation with diffuse 30% stenosis. 3.RCA, small nondominant with mild disease. 4.LAD, mid 99% stenosis status post PCI as above. 5.Large diagonal 1 branch with luminal irregularities. SR/MODL Voice ID: [id number] Report ID: [id number]
== END 2020-05-19 17:15 | disposition home or self-care (01) | DRG 247 ==
LOC: ER 15:08 → ERHOLD 18:03 → 2ND 22:35
PROVIDERS: ADMIT Family Medicine; ATTEND Family Medicine
PROC: 027034Z Dilation of Coronary Artery, One Artery with Drug-eluting Intraluminal Device, Percutaneous Approach (ICD-10-PCS; principal; 2020-05-18)
DX: I21.4 Non-ST elevation (NSTEMI) myocardial infarction (principal); I25.10 Atherosclerotic heart disease of native coronary artery without angina pectoris; I10 Essential (primary) hypertension; E78.5 Hyperlipidemia, unspecified; Z86.12 Personal history of poliomyelitis; Z11.59 Encounter for screening for other viral diseases
CPT/HCPCS: 36415; 71045; 71275; 74175; 80048; 80061; 80076; 82550; 82553; 82565; 83735; 83880; 84439; 84443; 84484; 85025; 85347; 85610; 85730; 92928; 93454; 96361; 96365; 99285; C1725; C1893; J1644; J2250; J3010; J7040; Q9967; U0002